=== PATIENT | female | born 1995 | race African-American/Black ===

== ENCOUNTER 2020-11-10 13:32 | Emergency (ER) | payer MEDICAID ==
[~2020-11-10] VITALS: Ht 157.5 cm; Wt 95.5 kg
[2020-11-10 14:32] LABS: BASOPHILS % (AUTO) 1 % (0-1); EOSINOPHILS % (AUTO) 0 % (1-7); LYMPHOCYTES % (AUTO) 38 % (22-44); MEAN CORPUSCULAR HEMOGLOBIN 27.9 pg (27.0-34.8); MEAN CORPUSCULAR HGB CONC 33.4 g/dL (32.4-35.8); MEAN PLATELET VOLUME 7.6 fL (7.4-10.4); MONOCYTES % (AUTO) 16 % (2-9); NEUTROPHILS % (AUTO) 45 % (42-75); PLATELET COUNT 317 x10^3/uL (130-400); RED BLOOD COUNT 5.69 x10^6/uL (3.82-5.3); RED CELL DISTRIBUTION WIDTH 14.3 % (9.6-15.2)
[2020-11-10 14:33] LABS: MD NO
[2020-11-10 14:45] LABS: ALBUMIN 4.6 g/dL (3.4-5.0); ANION GAP 7 mmol/L (5-15); CALCIUM 9.4 mg/dL (8.5-10.1); CHLORIDE 103 mmol/L (98-107); CREATININE 0.97 mg/dL (0.55-1.02)
[2020-11-10 14:48] LABS: TROPONIN I < 0.015 ng/mL (0.000-0.045)
--- NOTE | 2020-11-10 16:06 | NUR ---
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
[2020-11-10] MEDS ORDERED: MAALOX/HYOSCYAMINE/LIDOCAINE 45 ML BTL PO ONE (16:30)
[2020-11-10] MEDS ORDERED: MAALOX/HYOSCYAMINE/LIDOCAINE 45 ML BTL ONE (17:22)
[2020-11-10 17:53] VITALS: BP 110/70
== END 2020-11-10 17:55 | disposition home or self-care (01) ==
LOC: ED 16:32
DX: R07.2 Precordial pain (principal); R13.10 Dysphagia, unspecified; M54.2 Cervicalgia; R06.02 Shortness of breath
CPT/HCPCS: 36415; 71045; 80048; 82040; 84484; 85025; 93005; 99285

== ENCOUNTER 2020-11-24 14:07 | Emergency (ER) | payer MEDICAID ==
[~2020-11-24] VITALS: Ht 157.5 cm; Wt 92.3 kg
[2020-11-24] MEDS ORDERED: MAALOX/HYOSCYAMINE/LIDOCAINE 45 ML BTL PO ONE ×2 (15:30→17:30)
[2020-11-24 15:59] LABS: ALBUMIN 4.1 g/dL (3.4-5.0); CALCIUM 9.1 mg/dL (8.5-10.1)
[2020-11-24 16:03] LABS: ALANINE AMINOTRANSFERASE 22 U/L (12-78); ALKALINE PHOSPHATASE 51 U/L (45-117); BILIRUBIN,TOTAL 0.4 mg/dL (0.2-1.0); CREATININE 0.96 mg/dL (0.55-1.02); TOTAL PROTEIN 8.1 g/dL (6.4-8.2)
[2020-11-24 16:08] LABS: ANION GAP 7 mmol/L (5-15); CHLORIDE 110 mmol/L (98-107)
--- NOTE | 2020-11-24 16:08 | NUR ---
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
[2020-11-24] MEDS ORDERED: MAALOX/HYOSCYAMINE/LIDOCAINE 45 ML BTL ONE ×2 (16:11→17:27)
[2020-11-24 16:14] LABS: BASOPHILS % (AUTO) 1 % (0-1); EOSINOPHILS % (AUTO) 1 % (1-7); LYMPHOCYTES % (AUTO) 40 % (22-44); MEAN CORPUSCULAR HGB CONC 33.2 g/dL (32.4-35.8); MEAN PLATELET VOLUME 7.4 fL (7.4-10.4); MONOCYTES % (AUTO) 8 % (2-9); NEUTROPHILS % (AUTO) 50 % (42-75); PLATELET COUNT 343 x10^3/uL (130-400); RED CELL DISTRIBUTION WIDTH 14.4 % (9.6-15.2)
[2020-11-24 16:27] LABS: MD NO
[2020-11-24 16:58] VITALS: BP 115/58
== END 2020-11-24 18:17 | disposition home or self-care (01) ==
LOC: ED 17:21
DX: K21.00 Gastro-esophageal reflux disease with esophagitis, without bleeding (principal); R07.9 Chest pain, unspecified; R94.31 Abnormal electrocardiogram [ECG] [EKG]
CPT/HCPCS: 36415; 70360; 71045; 80053; 83690; 85025; 93005; 99285

== ENCOUNTER 2020-11-25 22:03 | Emergency (ER) | payer MEDICAID ==
[~2020-11-25] VITALS: Ht 157.5 cm; Wt 92.9 kg
[2020-11-25] MEDS ORDERED: MAALOX/HYOSCYAMINE/LIDOCAINE 45 ML BTL ONE (22:47)
[2020-11-25] MEDS ORDERED: MAALOX/HYOSCYAMINE/LIDOCAINE 45 ML BTL PO ONE (23:00)
[2020-11-25 23:10] LABS: TROPONIN I < 0.015 ng/mL (0.000-0.045)
[2020-11-26 00:47] VITALS: BP 132/74
== END 2020-11-26 00:49 | disposition home or self-care (01) ==
LOC: ED 22:26
DX: R07.89 Other chest pain (principal); R07.0 Pain in throat; F41.1 Generalized anxiety disorder; K21.9 Gastro-esophageal reflux disease without esophagitis
CPT/HCPCS: 36415; 84443; 84484; 93005; 99284

== ENCOUNTER 2020-12-12 22:36 | Emergency (ER) | payer MEDICAID ==
[~2020-12-12] VITALS: Ht 157.5 cm; Wt 90.9 kg
[2020-12-12 22:39] VITALS: BP 148/85
[2020-12-12 23:19] LABS: BASOPHILS % (AUTO) 1 % (0-1); EOSINOPHILS % (AUTO) 3 % (1-7); LYMPHOCYTES % (AUTO) 48 % (22-44); MEAN CORPUSCULAR HEMOGLOBIN 28.3 pg (27.0-34.8); MEAN CORPUSCULAR HGB CONC 33.9 g/dL (32.4-35.8); MEAN PLATELET VOLUME 7.2 fL (7.4-10.4); MONOCYTES % (AUTO) 8 % (2-9); NEUTROPHILS % (AUTO) 41 % (42-75); PLATELET COUNT 300 x10^3/uL (130-400); RED BLOOD COUNT 4.72 x10^6/uL (3.82-5.3); RED CELL DISTRIBUTION WIDTH 13.9 % (9.6-15.2)
[2020-12-12 23:22] LABS: MD NO
[2020-12-12 23:31] LABS: ALANINE AMINOTRANSFERASE 21 U/L (12-78); ANION GAP 5 mmol/L (5-15); CALCIUM 8.7 mg/dL (8.5-10.1); CHLORIDE 110 mmol/L (98-107); CREATININE 0.95 mg/dL (0.55-1.02)
[2020-12-12 23:33] LABS: ALKALINE PHOSPHATASE 42 U/L (45-117); BILIRUBIN,TOTAL 0.2 mg/dL (0.2-1.0); TOTAL PROTEIN 7.7 g/dL (6.4-8.2)
== END 2020-12-13 00:22 | disposition home or self-care (01) ==
LOC: ED 23:28
DX: K21.9 Gastro-esophageal reflux disease without esophagitis (principal); R09.89 Other specified symptoms and signs involving the circulatory and respiratory systems; R19.7 Diarrhea, unspecified; R11.0 Nausea; Z88.9 Allergy status to unspecified drugs, medicaments and biological substances
CPT/HCPCS: 36415; 80053; 83690; 84703; 85025; 99283